=== PATIENT | female | born 1960 | race African-American/Black ===

== ENCOUNTER 2019-02-15 11:08 | Outpatient (CLI) | payer OTHER ==
--- NOTE | 2019-02-15 11:44 | RAD ---
EXAM: 2 views of the left knee HISTORY: Bilateral knee pain COMPARISON: None FINDINGS: No knee effusion is seen. There is no evidence of acute fracture or dislocation. Moderate t ricompartmental joint space narrowing and osteophyte formation is seen. IMPRESSION: Moderate left knee osteoarthritis
--- NOTE | 2019-02-15 11:44 | RAD ---
EXAM: 2 views of the lumbosacral spine HISTORY: Low back pain COMPARISON: None FINDINGS: 2 views of the lumbosacral spine shows normal height and alignment of the vertebral bodies and intervertebral discs without fracture or subluxation. Mild intervertebral disc space narrowing is seen throughout the lumbar spine. Small osteophytes are seen throughout the lumbar spine. Posterio r facet arthrosis is seen in the lower lumbosacral spine. The sacroiliac joints are unremarkable. IMPRESSION: Degenerative changes of the lumbar spine as above
== END 2019-02-15 11:09 | disposition home or self-care (01) ==
LOC: BICRAD 11:08
PROVIDERS: ATTEND Internal Medicine
DX: Z02.71 Encounter for disability determination (principal); M17.12 Unilateral primary osteoarthritis, left knee; M47.816 Spondylosis without myelopathy or radiculopathy, lumbar region
CPT/HCPCS: 72100